=== PATIENT | female | born 1965 | race Caucasian/White ===

== ENCOUNTER 2021-01-18 23:15 | Inpatient (IN) | payer MEDICARE, OTHER ==
[~2021-01-18] VITALS: Ht 165.1 cm; Wt 133.9 kg
[2021-01-19] MEDS ORDERED: METHYL SALICYLATE/MENTHOL TOPICAL OINTMENT 57GM TUBE. TP PRN (01:00)
[2021-01-19] MEDS ORDERED: MAG HYDROX/AL HYDROX/SIMETH 30 ML ORAL.SUSP PO PRN (01:00)
[2021-01-19] MEDS ORDERED: MAGNESIUM HYDROXIDE 2,400 MG/30 ML ORAL.SUSP. PO PRN (01:00)
[2021-01-19 01:37] VITALS: BP 108/65
[2021-01-19] MEDS ORDERED: TORS20TA2 PO (02:05)
[2021-01-19] MEDS ORDERED: LISI2.5T PO (02:05)
[2021-01-19] MEDS ORDERED: POTA10TA PO (02:05)
[2021-01-19] MEDS ORDERED: CLON0.5T4 PO (02:05)
[2021-01-19] MEDS ORDERED: ATOR40TA59 PO (02:05)
[2021-01-19] MEDS ORDERED: GLIP5TAB10 PO (02:05)
[2021-01-19] MEDS ORDERED: RIVA3CAP15 PO (02:05)
[2021-01-19] MEDS ORDERED: DIGO125T17 PO (02:05)
[2021-01-19] MEDS ORDERED: SPIR25TA5 PO (02:05)
[2021-01-19] MEDS ORDERED: MINE15DR2 OU (02:05)
[2021-01-19] MEDS ORDERED: ZUBSOLV PO (02:05)
[2021-01-19] MEDS ORDERED: MELO15TA23 PO (02:05)
[2021-01-19] MEDS ORDERED: DULO60CA6 PO (02:05)
[2021-01-19] MEDS ORDERED: NITR0.4T22 SL (02:05)
[2021-01-19] MEDS ORDERED: IPRA3AMP29 NEB (02:05)
[2021-01-19] MEDS ORDERED: CARI350T14 PO (02:05)
[2021-01-19] MEDS ORDERED: AMIO200T6 PO ×2 (02:05)
[2021-01-19] MEDS ORDERED: OMEP20CA16 PO (02:05)
[2021-01-19] MEDS ORDERED: METO50TA4 PO (02:05)
[2021-01-19] MEDS ORDERED: DAPA10TA PO (02:05)
[2021-01-19] MEDS ORDERED: APIX5TAB3 PO (02:05)
[2021-01-19] MEDS ORDERED: TAMS0.4C97 PO (02:05)
[2021-01-19] MEDS ORDERED: IPRA4AER INH (02:05)
[2021-01-19] MEDS ORDERED: BUDE10.2 IH (02:05)
[2021-01-19] MEDS ORDERED: AMIT100T PO (02:05)
[2021-01-19] MEDS ORDERED: ASPI-889 PO (02:05)
[2021-01-19] MEDS ORDERED: NITROGLYCERIN SUBLINGUAL 0.4 MG BOTTLE OF 25. SL PRN (04:15)
[2021-01-19] MEDS ORDERED: clonazePAM 0.5 MG TABLET PO PRN (04:15)
[2021-01-19] MEDS ORDERED: ALBUTEROL SULFATE 2.5 MG/3 ML NEBU. NEB PRN (04:45)
--- NOTE | 2021-01-19 05:09 | NUR ---
Admission Note with Justification for Admission to [facility] Patient admitted to [facility] for protective oversight for emergency stabilization of acute psychiatric crisis. Pt admitted from: Hospital Inpatient Mode of arrival: EMS Accompanied By: EMS Precipitating behaviors that initiated intake and admission: Patient made SI statements prior to admit stating that she would drown herself. Description of failure of out patient attempts at stabilization in previous setting list behavior and medication trials: Multiple medication changes while inpatient. Behaviors and assessment findings upon admission: the patient has been calm and compliant since arrival. The patient has extensive bruising on forearms. The patient was alert to name, date and location. The patient was pleasant and appropriate during interactions with this nurse. Lungs clear, heart regular. The patient states that she has not had a BM for at least a week. Bowels were audible but hypoactive during auscultation. The patient reports no pain in her abdomen. 1+edema bilateral lower extremities noted. The patient is currently sleeping in her room. Plan: Admit for protective oversight for adjustment and stabilization of medications, behaviors and mood. Intense treatment regimen including groups, medication adjustments, therapy, consistent regimen for ADL's, self care, and sleep hygiene. Daily monitoring by Inpatient staff, Psychiatry, and Medical Physician.
[2021-01-19] MEDS ORDERED: ANTI-COAG MONITOR BY PHARMACY. MC PRN (05:15)
--- NOTE | 2021-01-19 05:23 | EKG ---
[address] [address] Test Date: 2021-01-19 Test Time: 05:11:03 Pat Name: ALFRED MEZA Department: Room: [address] [place] [address] Gender: F [employer]: : 1965 Requested By: STEVIE ETIENNE Order Number: [id number] Reading MD: Measurements Intervals Thayer Rate: 71 P: -72 VA: 218 QRS: 28 QRSD: 196 T: 62 QT: 454 QTc: 499 Interpretive Statements SUPRAVENTRICULAR RHYTHM NON SPECIFIC INTRAVENTRICULAR BLOCK ABNORMAL ECG RI6.01 No previous ECG available for comparison
[2021-01-19] MEDS ORDERED: POLYVINYL ALCOHOL 1.4% OPHTH SOLUTION 15ML BOTTLE. OU PRN (05:30)
[2021-01-19 06:05] VITALS: BP 90/43
[2021-01-19 06:42] LABS: BASO # 0.1 x10^3/uL (0.0-0.2); BASO % 1 % (0-3); EOS # 0.3 x10^3/uL (0.0-0.7); EOS % 4 % (0-3); HEMATOCRIT 29.9 % (36.0-47.0); HEMOGLOBIN 9.4 g/dL (12.0-15.5); LYMPH # 2.1 x10^3/uL (1.0-4.8); LYMPH % 23 % (24-48); MEAN CORPUSCULAR HEMOGLOBIN 27 pg (25-35); MEAN CORPUSCULAR HGB CONC 31 g/dL (31-37); MEAN CORPUSCULAR VOLUME 86 fL (79-100); MONO # 0.6 x10^3/uL (0.0-1.1); MONO % 7 % (0-9); NEUT # 5.9 x10^3uL (1.8-7.7); NEUT % 66 % (31-73); PLATELET COUNT 273 x10^3/uL (140-400); RED BLOOD COUNT 3.45 x10^6/uL (3.50-5.40); RED CELL DISTRIBUTION WIDTH 19.9 % (11.5-14.5)
[2021-01-19 06:54] LABS: ALBUMIN 2.3 g/dL (3.4-5.0); ALBUMIN/GLOBULIN RATIO 0.5 (1.0-1.7); CALCIUM 8.7 mg/dL (8.5-10.1); CREATININE 1.4 mg/dL (0.6-1.0); GFR 38.8; MAGNESIUM 1.6 mg/dL (1.8-2.4); POTASSIUM 4.4 mmol/L (3.5-5.1); TOTAL BILIRUBIN 0.4 mg/dL (0.2-1.0); TOTAL PROTEIN 6.8 g/dL (6.4-8.2)
[2021-01-19] MEDS ORDERED: ALBUTEROL SULFATE 8GM INHALER. INH PRN (07:30)
[2021-01-19 07:44] LABS: BILIRUBIN,URINE NEG (NEG); CLARITY,URINE CLEAR; COLOR,URINE YELLOW; GLUCOSE,URINE NEG (NEG); UROBILINOGEN,URINE 0.2 mg/dL (0.2 mg/dL)
[2021-01-19 07:45] LABS: BACTERIA,URINE FEW /HPF (0-FEW); NITRITE,URINE NEG (NEG); RBC,URINE OCC /HPF (0-2); SQUAMOUS EPITHELIAL CELL,UR MOD /LPF; WBC,URINE 20-40 /HPF (0-4)
[2021-01-19] MEDS ORDERED: IPRATRPIUM/ALBUTEROL 0.5/2.5MG 3 ML NEBU. NEB SCH (08:00)
[2021-01-19] MEDS ORDERED: BUDESONIDE 0.5 MG/2 ML NEBU NEB SCH (08:00)
[2021-01-19] MEDS: NON FORMULARY ITEM (Dapagliflozin Propanediol (Farxiga) 10 MG) PO SCH (09:00)
[2021-01-19 10:29] VITALS: BP 120/70
[2021-01-19] MEDS: DIGOXIN 125 MCG TABLET PO SCH (10:30)
[2021-01-19] MEDS: AMITRIPTYLINE HCL 50 MG TABLET PO SCH ×2 (10:31→20:34)
[2021-01-19] MEDS: LISINOPRIL 2.5 MG TABLET PO SCH (10:31)
[2021-01-19] MEDS: TORSEMIDE 20 MG TABLET. PO SCH ×2 (10:31→14:04)
[2021-01-19] MEDS: DULoxetine HCL 60 MG CAPSULE.DR PO SCH (10:31)
[2021-01-19] MEDS: glipiZIDE 5 MG TABLET PO SCH ×2 (10:31→17:43)
[2021-01-19] MEDS: METOPROLOL SUCC 24HR ER 50 MG TAB.ER.24H. PO SCH (10:32)
[2021-01-19] MEDS: PANTOPRAZOLE 40 MG TABLET. PO SCH (10:32)
[2021-01-19] MEDS: TAMSULOSIN 0.4 MG CAP.ER.24H. PO SCH (10:32)
[2021-01-19] MEDS: SPIRONOLACTONE 25 MG TABLET PO SCH (10:32)
[2021-01-19] MEDS: MELOXICAM 15 MG TABLET. PO SCH (10:32)
[2021-01-19] MEDS: APIXABAN 5 MG TABLET. PO SCH ×2 (10:33→20:33)
[2021-01-19] MEDS: RIVASTIGMINE 3 MG CAPSULE. PO SCH (10:33)
[2021-01-19] MEDS: IPRATROPIUM/ALBUTEROL 20/100mcg/INH INHALER. INH SCH ×4 (10:33→20:32)
[2021-01-19] MEDS: ASPIRIN ENTERIC COATED 81 MG TABLET.DR. PO SCH (10:33)
[2021-01-19] MEDS: POTASSIUM CHLORIDE 20 MEQ TABLET.ER. PO SCH (10:33)
--- NOTE | 2021-01-19 12:10 | NUR ---
ACTIVITY THERAPY ASSESSMENT completed based on notes, observation and interview.Pt was sitting in her wheelchair eating lunch in the dining room. AT explained groups that are offered on [facility] and then asked pt what she likes to do.Pt said "lots of things" and then said "reading and puzzles". Pt is aware and oriented to assessment questions. Pt said that she has good contact with her daughter who is a psychiatric nurse and pt stated "I think that is kind of funny."AT then asked pt if she reports any stress at this time and pt said "we're having a hard within my home and family." Pt discussed that she needed to find a night time sitter. Pt was pleasant and calm during assessment and thanked AT at the end. Pt was provided with reading materials and a few crosswords. Initial goal aimed to support socialization and engagement. Pt will participate in at least three individual or group Activity Therapy sessions per week.
[2021-01-19] MEDS: ACETAMINOPHEN 325 MG TABLET PO PRN (14:07)
[2021-01-19 15:59] VITALS: BP 102/62
--- NOTE | 2021-01-19 18:25 | NUR ---
Patient has been disorganized, attention seeking, somatic and helpless throughout this shift. Patient walked with therapy this morning and she stated to therapy that a night staff member triggered her PTSD. After lunch, patient was found on the floor in her bathroom after being assisted to her room, her dress and socks were wet at that time. Patient had pressed the call button and states that she could not walk back from her toilet to her chair which was in her bathroom at the time and that this proves she cannot walk by herself and needs someone to push her wheelchair everywhere she goes. When encouraged by an aide to help with getting her changed, patient threatened to punch the aide in her stomach. Patient was lifted off the floor with a Carina into her chair, then stood up unassisted so that staff could remove the Carina sling from her wheelchair. Patient continued to have attention seeking and manipulative behaviors. Will continue to monitor and report to MD during rounds.
[2021-01-19 19:58] LABS: THYROID STIM HORMONE (TSH) 5.353 uIU/mL (0.358-3.740)
[2021-01-19 20:08] LABS: THYROXINE 11.7 ug/dL (4.5-12.0)
[2021-01-19] MEDS: AMIODARONE HCL 200 MG TABLET. PO SCH (20:33)
[2021-01-19] MEDS: ATORVASTATIN CALCIUM 20 MG TABLET PO SCH (20:33)
--- NOTE | 2021-01-19 21:57 | PDOC ---
Exam Note: Pieter Note: Please also refer to the separate dictated note~for this date of service dictated separately.~Patient seen individually. Discussed the patient with Nursing staff reviewed the chart.~Reviewed interim history and current functioning. Reviewed vital signs,~Labs/ Radiology~and current medications noted below. Continue current treatment with the changes noted in the dictated addendum note Assessment: Vital Signs/I&O: Vital Signs Date Time Temp Pulse Resp B/P (MAP) Pulse Ox O2 Delivery O2 Flow Rate FiO2 01/19/21 20:33 54 102/62 01/19/21 15:59 97.1 20 94 01/19/21 01:37 91.0 Labs: Laboratory Tests Test 01/19/21 05:30 01/19/21 06:25 Urine Collection Type Unknown Urine Color Yellow Urine Clarity Clear Urine pH 5.5 Urine Specific [place] <=1.005 Urine Protein Neg (NEG-TRACE) Urine Glucose (UA) Neg mg/dL (NEG) Urine Ketones (Stick) Neg mg/dL (NEG) Urine Blood Trace (NEG) Urine Nitrite Neg (NEG) Urine Bilirubin Neg (NEG) Urine Urobilinogen Dipstick 0.2 mg/dL (0.2 mg/dL) Urine Leukocyte Esterase Mod (NEG) Urine RBC Occ /HPF (0-2) Urine WBC 20-40 /HPF (0-4) Urine Squamous Epithelial Cells Mod /LPF Urine Transitional Epithelial Cells Occ /LPF Urine Bacteria Few /HPF (0-FEW) White Blood Count 9.0 x10^3/uL (4.0-11.0) Red Blood Count 3.45 x10^6/uL (3.50-5.40) L Hemoglobin 9.4 g/dL (12.0-15.5) L Hematocrit 29.9 % (36.0-47.0) L Mean Corpuscular Volume 86 fL (79-100) Mean Corpuscular Hemoglobin 27 pg (25-35) Mean Corpuscular Hemoglobin Concent 31 g/dL (31-37) Red Cell Distribution Width 19.9 % (11.5-14.5) H Platelet Count 273 x10^3/uL (140-400) Neutrophils (%) (Auto) 66 % (31-73) Lymphocytes (%) (Auto) 23 % (24-48) L Monocytes (%) (Auto) 7 % (0-9) Eosinophils (%) (Auto) 4 % (0-3) H Basophils (%) (Auto) 1 % (0-3) Neutrophils # (Auto) 5.9 x10^3uL (1.8-7.7) Lymphocytes # (Auto) 2.1 x10^3/uL (1.0-4.8) Monocytes # (Auto) 0.6 x10^3/uL (0.0-1.1) Eosinophils # (Auto) 0.3 x10^3/uL (0.0-0.7) Basophils # (Auto) 0.1 x10^3/uL (0.0-0.2) D-Dimer (Florencia) 0.56 mg/L (0.00-0.50) H Sodium Level 135 mmol/L (136-145) L Potassium Level 4.4 mmol/L (3.5-5.1) Chloride Level 98 mmol/L (98-107) Carbon Dioxide Level 30 mmol/L (21-32) Anion Gap 7 (6-14) Blood Urea Nitrogen 23 mg/dL (7-20) H Creatinine 1.4 mg/dL (0.6-1.0) H Estimated GFR (Cockcroft-Gault) 38.8 BUN/Creatinine Ratio 16 (6-20) Glucose Level 193 mg/dL (70-99) H Calcium Level 8.7 mg/dL (8.5-10.1) Magnesium Level 1.6 mg/dL (1.8-2.4) L Iron Level 47 ug/dL (50-170) L Total Iron Binding Capacity 336 ug/dL (250-450) Iron Saturation 14 % (15-34) L Total Bilirubin 0.4 mg/dL (0.2-1.0) Aspartate Amino Transferase (AST) 18 U/L (15-37) Alanine Aminotransferase (ALT) 32 U/L (14-59) Alkaline Phosphatase 130 U/L (46-116) H Total Protein 6.8 g/dL (6.4-8.2) Albumin 2.3 g/dL (3.4-5.0) L Albumin/Globulin Ratio 0.5 (1.0-1.7) L Triglycerides Level 188 mg/dL (0-150) H Cholesterol Level 68 mg/dL (0-200) LDL Cholesterol, Calculated 6 mg/dL (0-100) VLDL Cholesterol, Calculated 37 mg/dL (0-40) Non-HDL Cholesterol Calculated 43 mg/dL (0-129) HDL Cholesterol 25 mg/dL (40-60) L Cholesterol/HDL Ratio 2.0 Vitamin B12 Level 360 pg/mL (247-911) 25-Hydroxy Vitamin D Total 9.7 ng/mL (30-100) L Thyroid Stimulating Hormone (TSH) 5.353 uIU/mL (0.358-3.740) Thyroxine (T4) 11.7 ug/dL (4.5-12.0) Total Triiodothyronine (TT3) 180 ng/dL (71-180) Treponema pallidum Antibody Nonreactive (Nonreactive) Current Medications: Meds: Current Medications Medications (Trade) Dose Ordered Sig/Maria C Route PRN Reason Start Time Stop Time Status Last Admin Dose Admin Acetaminophen (Tylenol) 650 mg PRN Q6HRS PRN PO MILD PAIN / TEMP > 100.3'F 01/19/21 01:00 01/19/21 14:07 Duloxetine HCl (Cymbalta) 60 mg DAILY PO 01/19/21 09:00 01/19/21 10:31 Rivastigmine Tartrate (Exelon) 3 mg DAILY PO 01/19/21 09:00 01/19/21 10:33 Amitriptyline HCl (Elavil) 100 mg BID PO 01/19/21 09:00 01/19/21 20:34 Apixaban (Eliquis) 5 mg BID PO 01/19/21 09:00 01/19/21 20:33 Aspirin (Aspirin Enteric Coated) 81 mg DAILY PO 01/19/21 09:00 01/19/21 10:33 Digoxin (Lanoxin) 125 mcg DAILY PO 01/19/21 09:00 01/19/21 10:30 Glipizide (Glucotrol) 2.5 mg BIDWMEALS PO 01/19/21 08:00 01/19/21 17:43 Lisinopril (Prinivil) 2.5 mg DAILY PO 01/19/21 09:00 01/19/21 10:31 Meloxicam (Mobic) 15 mg DAILY PO 01/19/21 09:00 01/19/21 10:32 Metoprolol Succinate (Toprol Xl) 50 mg DAILY PO 01/19/21 09:00 01/19/21 10:32 Spironolactone (Aldactone) 25 mg DAILY PO 01/19/21 09:00 01/19/21 10:32 Tamsulosin HCl (Flomax) 0.4 mg DAILY PO 01/19/21 09:00 01/19/21 10:32 Torsemide (Demadex) 80 mg BID92 PO 01/19/21 09:00 01/19/21 14:04 Atorvastatin Calcium (Lipitor) 40 mg QHS PO 01/19/21 21:00 01/19/21 20:33 Pantoprazole Sodium (Protonix) 40 mg DAILYAC PO 01/19/21 07:30 01/19/21 10:32 Potassium Chloride (Klor-Con) 20 meq DAILYWBKFT PO 01/19/21 08:00 01/19/21 10:33 Albuterol/ Ipratropium (Combivent Respimat 20-100 Mcg) 1 puff RTQID INH 01/19/21 08:00 01/19/21 20:32 Amiodarone HCl (Cordarone) 200 mg BID PO 01/19/21 21:00 01/29/21 00:00 01/19/21 20:33 I have reviewed the current psychotropics carefully including drug interactions. Risk benefit ratio favors no change other than as noted in my dictated progress note. Diagnosis: Problems: (1) Major depressive disorder STEVIE ETIENNE MD January 19, 2021 21:57
[2021-01-20 01:09] LABS: HEMOGLOBIN A1C 7.3 % (4.8-5.6)
--- NOTE | 2021-01-20 03:16 | CONS ---
DATE OF CONSULTATION: 01/18/2021 HISTORY OF PRESENT ILLNESS: This is a consult for medical management of the patient. The patient is a 55-year-old female patient residing at an Independent Living Facility and who was admitted to [facility] on 01/09/2021 for encephalopathy. She apparently was found on the floor having profuse diarrhea for 2 days. In the emergency room, she was found to be in AFib with RVR in the setting of known heart failure with an ejection fraction of 10-15%. She was extensively investigated for her encephalopathy including lumbar puncture, MRI of the brain and EEG and trial of antibiotics and liver tests have been unremarkable so far, and has been off of antibiotics for a few days per infectious disease recommendation. Apparently, the patient has been reportedly having suicidal ideation with a plan of drowning herself. She also had acute psychosis with hallucination. She apparently has had Parkinson disease and her Sinemet was held and because of these ideation the patient was transferred to [facility] for inpatient psychiatric stabilization. PAST MEDICAL HISTORY: Significant for coronary artery disease, type 2 diabetes mellitus, diabetic polyneuropathy, reflex sympathetic dystrophy, obstructive sleep apnea, chronic obstructive pulmonary disease. She has Parkinson's disease, chronic combined systolic and diastolic congestive heart failure, paroxysmal atrial fibrillation, cardiomyopathy, atrial fibrillation with rapid ventricular response. PAST SURGICAL HISTORY: Significant for bilateral carpal tunnel, cholecystectomy and total abdominal hysterectomy with bilateral salpingo-oophorectomy. She also has cardiac catheterization and cervical corpectomy at C6. ALLERGIES: SHE IS ALLERGIC TO PENICILLIN, SULFA DRUGS, ADHESIVE TAPE, GABAPENTIN, PHENYTOIN AND PREGABALIN. MEDICATIONS: She is currently on the following medication - she is on rivastigmine tartrate 10 mg daily, DuoNeb, 0.5/2.5 in 3 mL by nebulizer q.4h., tamsulosin 0.4 mg daily, Soma 350 mg 3 times a day, apixaban 5 mg twice a day, amiodarone 200 mg twice a day. She is on digoxin 125 mcg once a day, atorvastatin calcium 40 mg at bedtime. She is on nitroglycerin 0.4 mg sublingually every 5 minutes x3, metoprolol succinate 50 mg daily and lisinopril 2.5 mg once a day, spironolactone 25 mg daily, aspirin 81 mg once a day, meloxicam 15 mg once a day, clonazepam 0.5 mg twice a day, amitriptyline 100 mg twice a day, duloxetine 60 mg daily. She is on potassium chloride 20 mEq once a day and torsemide 80 mg twice a day, Symbicort 2 puffs twice a day, omeprazole 20 mg twice a day, Farxiga 10 mg daily, glipizide 2.5 mg twice a day, and she is also on Zubsolv 0.71-2.9 mg p.o. b.i.d., which is an opioid. FAMILY HISTORY: Her father at the age of 36 and a brother is still alive. Apparently, her father in a car accident. SOCIAL HISTORY: She is a resident at assisted living facility. She is a former smoker. She used to smoke 2 packs a day, quit smoking in 10/2020. She does not drink alcohol or use any recreational drugs. REVIEW OF SYSTEMS: The patient complained mostly of pain in her upper and lower extremities and she has reflex sympathetic dystrophy and apparently she was on opioids and this were discontinued. PHYSICAL EXAMINATION: GENERAL: When I examined her, she was sitting comfortably in her wheelchair, somewhat pale, but no jaundice, cyanosis, no lymphadenopathy, no thyromegaly, no jugular venous distention, but mild bilateral lower limb edema. VITAL SIGNS: Her heart rate was 66, blood pressure is 120/70, temperature 98, respiratory rate 20, and oxygen saturation was 91% on room air. HEENT: Examination of the head, eyes, nose and throat: Normocephalic, atraumatic. NECK: Supple. HEART: Normal first and second heart sounds, no gallop, murmur. CHEST: Clear to auscultation. No crepitation or rhonchi. ABDOMEN: Markedly distended, soft, nontender. NEUROLOGIC: She is awake, alert, but she seems to drift into sleep. She is easily arousable. All her cranial nerves are intact. She moves extremities without difficulty. She stated that she ambulates with a walker. LABORATORY DATA: Showed a white cell count 9000, hemoglobin 9, hematocrit 29, MCV 86 and platelet count 273,000. Her serum sodium was 135, potassium 4.4, chloride 98, bicarbonate 30, anion gap of 7, BUN 23, creatinine 1.4. Estimated GFR was 39 mL per minute. Her glucose 193, calcium was 8.7, magnesium was 1.6. Total bilirubin, AST, ALT, alkaline phosphatase were normal. Total protein was 6.8, albumin was 2.3. Her D-dimer was slightly elevated at 0.56 and urinalysis showed the urine was yellow, clear with a pH of 5.5, specific gravity 1.005. The urine was negative for protein, glucose, ketones. There was trace of blood, negative for nitrite; however, there was moderate amount of leukocyte esterase, occasional RBC'S, 20-40 WBCs and few bacteria. ASSESSMENT AND PLAN: In summary, this is a 55-year-old female patient who was seen initially at [facility] for what seemed to be encephalopathy. It was extensively investigated and all the tests were negative including EEG, lumbar puncture, MRI and a trial of antibiotic. She apparently has been having suicidal ideation with a plan of drowning herself. She has also periods of confusion and visual hallucination and therefore, the patient was [facility] for inpatient psychiatric stabilization. She has a multitude of medical problems including chronic systolic congestive heart failure with an ejection fraction of only 15%, coronary artery disease, paroxysmal atrial fibrillation, Parkinson's disease, chronic obstructive pulmonary disease, obstructive sleep apnea, type 2 diabetes, hypertension. She is a former smoker. She also has reflex sympathetic dystrophy, severe. She has some cognitive impairment, hypokalemia, hypomagnesemia and hypocalcemia, all in all, the patient seems to be medically stable. I will continue on her current medication and follow her lab work that is still pending at the time of this dictation. She does not seem clinically to be in heart failure and she is on meloxicam, which sometimes can cause fluid retention and if necessary, this can be discontinued. I do not see any anti-parkinsonian medication as Sinemet can cause actually visual hallucinations. SANDHYA DR: Marques TID: [id number]
--- NOTE | 2021-01-20 03:32 | NUR ---
Nursing Note The patient was located in her room for the majority of the shift. The patient was irritable with staff during cares. The patient is uncooperative with self cares and refuses to propel herself in her wheel chair or transfer to and from wheel chair. The patient was compliant with medications and took them whole. The patient has several self inflicted wounds located on her forearms r/t scratching self. Photos taken and placed in photo book.
[2021-01-20 06:09] VITALS: BP 110/71
[2021-01-20] MEDS: NON FORMULARY ITEM (Dapagliflozin Propanediol (Farxiga) 10 MG) PO SCH (08:00)
[2021-01-20] MEDS: PANTOPRAZOLE 40 MG TABLET. PO SCH (08:59)
[2021-01-20] MEDS: TORSEMIDE 20 MG TABLET. PO SCH ×2 (08:59→12:20)
[2021-01-20] MEDS: glipiZIDE 5 MG TABLET PO SCH ×2 (08:59→17:37)
[2021-01-20] MEDS: AMITRIPTYLINE HCL 50 MG TABLET PO SCH ×2 (08:59→20:34)
[2021-01-20] MEDS: DIGOXIN 125 MCG TABLET PO SCH (09:00)
[2021-01-20] MEDS: DULoxetine HCL 60 MG CAPSULE.DR PO SCH (09:00)
[2021-01-20] MEDS: SPIRONOLACTONE 25 MG TABLET PO SCH (09:00)
[2021-01-20] MEDS: AMIODARONE HCL 200 MG TABLET. PO SCH ×2 (09:00→20:34)
[2021-01-20] MEDS: ASPIRIN ENTERIC COATED 81 MG TABLET.DR. PO SCH (09:00)
[2021-01-20] MEDS: POTASSIUM CHLORIDE 20 MEQ TABLET.ER. PO SCH (09:00)
[2021-01-20] MEDS: LISINOPRIL 2.5 MG TABLET PO SCH (09:01)
[2021-01-20] MEDS: MELOXICAM 15 MG TABLET. PO SCH (09:01)
[2021-01-20] MEDS: APIXABAN 5 MG TABLET. PO SCH ×2 (09:01→20:34)
[2021-01-20] MEDS: METOPROLOL SUCC 24HR ER 50 MG TAB.ER.24H. PO SCH (09:01)
[2021-01-20] MEDS: RIVASTIGMINE 3 MG CAPSULE. PO SCH (09:01)
[2021-01-20] MEDS: TAMSULOSIN 0.4 MG CAP.ER.24H. PO SCH (09:01)
[2021-01-20] MEDS: IPRATROPIUM/ALBUTEROL 20/100mcg/INH INHALER. INH SCH ×4 (09:02→20:34)
[2021-01-20] MEDS: FLUTICASONE FUROATE 100mcg/INH ELLIPTA INHALER. INH SCH (09:02)
--- NOTE | 2021-01-20 11:12 | NUR ---
Patient is calm and cooperative in her room. Patient needs much encouragement to use her walker and walk the unit. Patient was unwilling to head to breakfast but will be encouraged to head to lunch
[2021-01-20 16:09] VITALS: BP 98/63
--- NOTE | 2021-01-20 18:00 | NUR ---
Patient walked from [facility] to her room without alerting staff. While patient was walking in her room with the use of her walker she fell over to her left side. patient states she felt dizzy and weak. Patient family called and a voicemail was left. Dr. Lund notified of fall no new orders at this time. patient denies hip pain or hitting her head. Staff will continue to monitor.
[2021-01-20] MEDS: ATORVASTATIN CALCIUM 20 MG TABLET PO SCH (20:34)
--- NOTE | 2021-01-20 23:30 | NUR ---
Pt located in her room this evening. Pt helpless and attention seeking. Denies SI. Compliant with whole medications. Pt intermittently yelling out from bed.
--- NOTE | 2021-01-21 00:37 | PN ---
DATE: 01/20/2021 SUBJECTIVE: The patient was seen today, met with the staff, chart reviewed and also covering for Dr. Freeman. The patient has been sleeping during the daytime, complains of having difficulty breathing at times. Apparently, she has sleep apnea, was using CPAP machine at home. The patient admits to being unsteady on her feet. She is a fall risk. OBSERVATION: VITAL SIGNS: Temperature 97.2, blood pressure 110/71, pulse 72, respirations 16, O2 sat 94%. GENERAL: Slept about 4 hours last night. CURRENT MEDICATIONS: Include Cymbalta 60 mg daily, Exelon 3 mg daily, amitriptyline 100 mg twice a day. The patient denies of having any side effects to medications. LABORATORY DATA: The patient's lab reviewed. ASSESSMENT: Major depressive disorder, moderate to severe, without psychotic symptoms. PLAN: Continue with the current treatment plan. Length of stay 7 to [address]: Charlie TID: [id number] [facility]
[2021-01-21 06:19] VITALS: BP 94/58
[2021-01-21] MEDS: NON FORMULARY ITEM (Dapagliflozin Propanediol (Farxiga) 10 MG) PO SCH (07:24)
[2021-01-21] MEDS: ASPIRIN ENTERIC COATED 81 MG TABLET.DR. PO SCH (08:26)
[2021-01-21] MEDS: SPIRONOLACTONE 25 MG TABLET PO SCH (08:27)
[2021-01-21] MEDS: glipiZIDE 5 MG TABLET PO SCH ×2 (08:27→17:19)
[2021-01-21] MEDS: DULoxetine HCL 60 MG CAPSULE.DR PO SCH (08:27)
[2021-01-21] MEDS: AMIODARONE HCL 200 MG TABLET. PO SCH ×2 (08:27→20:49)
[2021-01-21] MEDS: TAMSULOSIN 0.4 MG CAP.ER.24H. PO SCH (08:28)
[2021-01-21] MEDS: PANTOPRAZOLE 40 MG TABLET. PO SCH (08:28)
[2021-01-21] MEDS: AMITRIPTYLINE HCL 50 MG TABLET PO SCH ×2 (08:28→20:49)
[2021-01-21] MEDS: RIVASTIGMINE 3 MG CAPSULE. PO SCH (08:28)
[2021-01-21] MEDS: LISINOPRIL 2.5 MG TABLET PO SCH (08:28)
[2021-01-21] MEDS: POTASSIUM CHLORIDE 20 MEQ TABLET.ER. PO SCH (08:29)
[2021-01-21] MEDS: TORSEMIDE 20 MG TABLET. PO SCH ×2 (08:29→12:13)
[2021-01-21] MEDS: METOPROLOL SUCC 24HR ER 50 MG TAB.ER.24H. PO SCH (08:29)
[2021-01-21] MEDS: IPRATROPIUM/ALBUTEROL 20/100mcg/INH INHALER. INH SCH ×4 (08:30→20:49)
[2021-01-21] MEDS: APIXABAN 5 MG TABLET. PO SCH ×2 (08:30→20:49)
[2021-01-21] MEDS: FLUTICASONE FUROATE 100mcg/INH ELLIPTA INHALER. INH SCH (08:30)
[2021-01-21] MEDS: MELOXICAM 15 MG TABLET. PO SCH (08:30)
[2021-01-21] MEDS: DIGOXIN 125 MCG TABLET PO SCH (08:30)
[2021-01-21 08:31] LABS: BILIRUBIN,URINE NEG (NEG); CLARITY,URINE HAZY; COLOR,URINE YELLOW; GLUCOSE,URINE NEG (NEG)
[2021-01-21 08:32] LABS: NITRITE,URINE NEG (NEG); UROBILINOGEN,URINE 0.2 mg/dL (0.2 mg/dL)
[2021-01-21 08:35] LABS: RBC,URINE 0 /HPF (0-2)
[2021-01-21 08:36] LABS: BACTERIA,URINE FEW /HPF (0-FEW)
--- NOTE | 2021-01-21 10:10 | NUR ---
Patient is irritable and expresses frustration with her care today. patient states that she is unhappy with staff encouraging her to walk when possible and she feels that nobody understands her conditions. Patient educated that staff has her best interest in mind and will do their best to accommodate her needs. Patient given time to vent to nurse and to speak with family. Family updated on patients behaviors and staff capabilities.
[2021-01-21 16:19] VITALS: BP 103/63
[2021-01-21] MEDS: ATORVASTATIN CALCIUM 20 MG TABLET PO SCH (20:49)
[2021-01-21] MEDS: CYCLOBENZAPRINE 10 MG TABLET. PO PRN (20:51)
[2021-01-21] MEDS: ACETAMINOPHEN 325 MG TABLET PO PRN (21:59)
--- NOTE | 2021-01-21 22:46 | NUR ---
Pt located in her room this evening reading and completing word searches. Compliant with whole medications. Complains of arm/ leg pain. PRN Flexeril administered with HS medications. Pt irritable and upset with staff, stating that nobody listens to her and understands her situation.
--- NOTE | 2021-01-22 02:58 | PN ---
DATE: 01/21/2021 SUBJECTIVE: The patient was seen today, met with the staff. Chart reviewed and also covering for Dr. Freeman . Staff reports the patient is attention seeking, manipulative behaviors, constantly being helpless. Patient also has multiple physical complaints. She is also having problems with sleep apnea, admits to having problems with breathing at times. PHYSICAL EXAMINATION: VITAL SIGNS: Temperature 96.8, blood pressure 94/58, pulse 134, respirations 16, O2 sat 90%. Slept about 5 hour last night. GENERAL: The patient's appetite is fair. CURRENT MEDICATIONS: Cymbalta 60 mg daily, Exelon 3 mg daily, amitriptyline 100 mg twice a day. She denies of any side effects to medications. LABORATORY DATA: The patient's lab reviewed. ASSESSMENT: Major depressive disorder, moderate to severe, without psychotic symptoms. PLAN: To continue with the current treatment plan. Length of stay 7 to 10 days. AB/TAMERA/CHETAN DR: Charlie TID: [id number] [facility]TDD
[2021-01-22 06:37] VITALS: BP_SYST 122; BP_DIAS 72; BP_DIAS 74
[2021-01-22] MEDS: glipiZIDE 5 MG TABLET PO SCH ×2 (08:34→17:36)
[2021-01-22] MEDS: APIXABAN 5 MG TABLET. PO SCH ×2 (08:34→21:41)
[2021-01-22] MEDS: SPIRONOLACTONE 25 MG TABLET PO SCH (08:34)
[2021-01-22] MEDS: METOPROLOL SUCC 24HR ER 50 MG TAB.ER.24H. PO SCH (08:35)
[2021-01-22] MEDS: MELOXICAM 15 MG TABLET. PO SCH (08:36)
[2021-01-22] MEDS: POTASSIUM CHLORIDE 20 MEQ TABLET.ER. PO SCH (08:36)
[2021-01-22] MEDS: TAMSULOSIN 0.4 MG CAP.ER.24H. PO SCH (08:36)
[2021-01-22] MEDS: PANTOPRAZOLE 40 MG TABLET. PO SCH (08:37)
[2021-01-22] MEDS: DIGOXIN 125 MCG TABLET PO SCH (08:37)
[2021-01-22] MEDS: LISINOPRIL 2.5 MG TABLET PO SCH (08:37)
[2021-01-22] MEDS: DULoxetine HCL 60 MG CAPSULE.DR PO SCH (08:38)
[2021-01-22] MEDS: AMITRIPTYLINE HCL 50 MG TABLET PO SCH ×2 (08:38→21:42)
[2021-01-22] MEDS: IPRATROPIUM/ALBUTEROL 20/100mcg/INH INHALER. INH SCH ×4 (08:38→21:42)
[2021-01-22] MEDS: RIVASTIGMINE 3 MG CAPSULE. PO SCH (08:38)
[2021-01-22] MEDS: AMIODARONE HCL 200 MG TABLET. PO SCH ×2 (08:38→21:41)
[2021-01-22] MEDS: TORSEMIDE 20 MG TABLET. PO SCH ×2 (08:38→13:01)
[2021-01-22] MEDS: FLUTICASONE FUROATE 100mcg/INH ELLIPTA INHALER. INH SCH (08:38)
[2021-01-22] MEDS: NON FORMULARY ITEM (Dapagliflozin Propanediol (Farxiga) 10 MG) PO SCH (08:39)
[2021-01-22] MEDS: ASPIRIN ENTERIC COATED 81 MG TABLET.DR. PO SCH (08:39)
[2021-01-22] MEDS: ACETAMINOPHEN 325 MG TABLET PO PRN (08:49)
--- NOTE | 2021-01-22 10:08 | NUR ---
LUIS MANUEL returned call to pt dtr/DPOA, Shae, to schedule a visit for Friday at 0900. LUIS MANUEL informed Shae that she can have 2 people at the visit (>17 in age) and that visits were only 30 minutes. LUIS MANUEL recommended her leaving her purse in the car, but was not required. LUIS MANUEL also recommended she be here at least 10 prior to go through the check in process and avoid being late for her visit at 0900.
--- NOTE | 2021-01-22 15:08 | NUR ---
SW contacted pt dtr, Shae, to inform her that pt is on the floor and giving staff a hard time about getting up. It was noted that pt was seen on the cameras using the chair to get on the floor. Pt is refusing to assist and has been told that staff is not going to lift her 100% up off the floor and she will need to assist in standing. Pt dtr reports that she can be difficult but has no clue why she would even try to put herself on the floor. Initially staff took all phone calls from pt; however, SW did approve for pt dtr to talk to her in hopes to get pt off the floor. Pt dtr called back stating that pt hung up on her. SW and pt dtr agreed that no visit would be needed for tomorrow as pt cannot have behaviors as such and be rewarded. Pt dtr reports that she started out saying "so I hear you're on the floor" pt told her dtr that she fell in which pt dtr said "okay, but now it's time to get up off the floor". In which pt dtr reports getting a dial tone afterwards. SW will plan to talk to pt herself and can update pt dtr afterwards.
--- NOTE | 2021-01-22 15:16 | NUR ---
Nursing note: Pt in dining room at time of AM med pass and assessment. Pt is pleasant, med compliant and cooperative. Pt c/o pain 8/10 in her arms and legs and requested tylenol. PRN given with AM meds, which was effective upon reassessment. Pt later put herself on the floor when walking in the hallway. She is sitting directly in front of a chair and when asked about it, she states "Oh, I just slid out of my chair." Pt is refusing staff assistance to get her up off the floor. She was brought a pillow to place as a cushion under her knees in order to use the chair to assist in standing her up. Pt then began to log roll down the hallway. Staff has attempted to help pt get up off the floor multiple times, but she continues to refuse help. Pt continues to sit quietly on the floor at this time. Will continue to monitor and provide encouragement.
--- NOTE | 2021-01-22 15:37 | NUR ---
LUIS MANUEL met with pt and discussed with her how she made it to the floor. Pt stated that she was walking down the hallway and fell. But no one seems to understand and know her pain. SW questioned pt as it was noted on the cameras that pt used the chair in the hallway and placed herself on the floor. Pt denied and stated "you guys can't prove that happened, you say it but you can't prove it". SW pointed to the camera in the hallway and explained to pt that it was seen by two different staff members and pt stated "that's a shame. I don't think they watched very closely because I fell". SW informed pt that staff would not be physically picking pt up and she would have to help also. Pt reports that she can lift her bottom but that's about it. SW disagreed with pt as she rolled herself down the hallway, has been bending her knees while talking to SW and has been walking to and from the dining room. "you can lift more than your butt to help staff". Pt questioned why they just couldn't use the green thing to help her because that's what was used all weekend. LUIS MANUEL explained with pt that we were not going to use a joan lift every time pt was on the floor. There are people who need the joan for cares and she is more than capable of assisting staff. Pt reports that she doesn't feel like anyone here has read her chart, nor understands everything going on with her. SW assured her that staff is very well aware of her history and knows about her medical diagnosis. In which pt smirked "oh do they? They why am I on the floor and not up in my bed". LUIS MANUEL stated "you're on the floor because you put yourself there and you're not in your bed because you refused every option staff gave you to get up off the floor". Pt smirked and denied staff giving her any options to get off the floor. LUIS MANUEL will work with nursing on a behavioral plan in the event pt ends up on the floor again. It appears that PT has signed off on pt need for therapy. However, if pt is to return home, there are concerns that she is not physically able to care for herself during the times her caregivers are not there. Note: pt receives 55 hours for the week for services; however, she has not had any due to her being difficult when they are there and caregivers are refusing to work with her.
--- NOTE | 2021-01-22 18:00 | NUR ---
Nursing note: Concerns regarding pt fluid restriction addressed with Dr. Lund. New orders received for a 1500mL fluid restriction.
[2021-01-22] MEDS: ATORVASTATIN CALCIUM 20 MG TABLET PO SCH (21:42)
--- NOTE | 2021-01-23 00:09 | PN ---
DATE: 01/22/2021 SUBJECTIVE: The patient was seen today, met with the staff. Chart reviewed and also covering for Dr. Freeman . The patient is still attention seeking, helpless, attentively manipulative at times. The patient also is having problems with her breathing at times. OBSERVATION VITAL SIGNS: Temperature 97.4, blood pressure 122/72, pulse 63, respirations 20, O2 sat 97%. Slept about 5 hour last night. GENERAL: The patient's appetite improved. CURRENT MEDICATIONS: Include Cymbalta 60 mg daily, Exelon 3 mg daily, amitriptyline 100 mg twice a day. The patient denies of any side effects to medications. LABORATORY DATA: The patient's lab reviewed. ASSESSMENT: Major depressive disorder, moderate to severe with psychotic features. PLAN: The patient is currently taking amitriptyline 200 mg in total and because of the risk for overdose and also cardiac toxicity, decided to decrease the Elavil to 50 mg twice a day and eventually discontinue. Length of stay 7 days. GENNA/CHETAN DR: Charlie TID: [id number] MTDD
--- NOTE | 2021-01-23 00:16 | NUR ---
Pt put herself on the floor in the bathroom after she was finished using the toilet. Patient states that she "fell" onto the floor. Day shift nurse told HS nurse that patient has been putting herself on the floor for attention. Nurse assessed patient and no injuries were found. Patient denied pain Nurse then spoke with patient about the danger of putting self on the floor and how when she refuses to assist staff in getting her back into chair she can hurt herself or the staff assisting her. Nurse retrieved Carina and lift sheet to assist the patient up but then MUNICIPAL CLERK staff used gait belt to get patient up and into wheelchair. Patient compliant with medications and was assisted to bed. Patient denies SI and denied that putting herself on the floor was an attempt to hurt herself.
[2021-01-23 06:17] VITALS: BP 99/77
[2021-01-23] MEDS: IPRATROPIUM/ALBUTEROL 20/100mcg/INH INHALER. INH SCH ×4 (08:00→21:03)
[2021-01-23] MEDS: POTASSIUM CHLORIDE 20 MEQ TABLET.ER. PO SCH (08:49)
[2021-01-23] MEDS: PANTOPRAZOLE 40 MG TABLET. PO SCH (08:49)
[2021-01-23] MEDS: glipiZIDE 5 MG TABLET PO SCH ×2 (08:49→17:11)
[2021-01-23] MEDS: TORSEMIDE 20 MG TABLET. PO SCH ×2 (08:50→12:27)
[2021-01-23] MEDS: SPIRONOLACTONE 25 MG TABLET PO SCH (08:50)
[2021-01-23] MEDS: RIVASTIGMINE 3 MG CAPSULE. PO SCH (08:51)
[2021-01-23] MEDS: AMITRIPTYLINE HCL 50 MG TABLET PO SCH ×2 (08:51→21:03)
[2021-01-23] MEDS: AMIODARONE HCL 200 MG TABLET. PO SCH ×2 (08:51→21:10)
[2021-01-23] MEDS: DULoxetine HCL 60 MG CAPSULE.DR PO SCH (08:51)
[2021-01-23] MEDS: APIXABAN 5 MG TABLET. PO SCH ×2 (08:51→21:04)
[2021-01-23] MEDS: MELOXICAM 15 MG TABLET. PO SCH (08:51)
[2021-01-23] MEDS: TAMSULOSIN 0.4 MG CAP.ER.24H. PO SCH (08:51)
[2021-01-23] MEDS: DIGOXIN 125 MCG TABLET PO SCH (08:52)
[2021-01-23] MEDS: ASPIRIN ENTERIC COATED 81 MG TABLET.DR. PO SCH (08:52)
[2021-01-23] MEDS: LISINOPRIL 2.5 MG TABLET PO SCH (08:53)
[2021-01-23] MEDS: METOPROLOL SUCC 24HR ER 50 MG TAB.ER.24H. PO SCH (08:53)
[2021-01-23] MEDS: NON FORMULARY ITEM (Dapagliflozin Propanediol (Farxiga) 10 MG) PO SCH (08:54)
[2021-01-23] MEDS: FLUTICASONE FUROATE 100mcg/INH ELLIPTA INHALER. INH SCH (08:54)
--- NOTE | 2021-01-23 13:32 | NUR ---
Nursing note: Pt in dining room at time of AM med pass and assessment. She is compliant with meds whole and cooperative with assessment. Pt denies pain, hallucinations and SI. Pt is in wheelchair for safety and is able to propel herself around the unit. Pt will occasionally ask staff to push her around the unit, but encouragement is provided and she is able to wheel herself. She is currently in the day room for group. Will continue to monitor.
[2021-01-23] MEDS: ACETAMINOPHEN 325 MG TABLET PO PRN ×2 (18:19→23:45)
[2021-01-23] MEDS: ATORVASTATIN CALCIUM 20 MG TABLET PO SCH (21:04)
[2021-01-23 21:10] VITALS: BP 97/52
--- NOTE | 2021-01-23 22:20 | NUR ---
Held HS amiodarone as patients BP and pulse were low. See documentation
[2021-01-23] MEDS: CYCLOBENZAPRINE 10 MG TABLET. PO PRN (23:45)
--- NOTE | 2021-01-23 23:45 | NUR ---
Patient reports 9/10 pain in right femur and hip. PRN tylenol and Flexoril given for pain. Will continue to monitor.
[2021-01-23] MEDS ORDERED: CYCL-331 PO (23:47)
[2021-01-23] MEDS ORDERED: METH57CR17 TP (23:50)
[2021-01-23] MEDS ORDERED: ACET325T21 PO (23:51)
--- NOTE | 2021-01-23 23:51 | NUR ---
At 2240 PHARMACY TECHNICIAN INSTRUCTOR was rounding heard pressure alarm sounding and observed patient sitting on the toilet. When PHARMACY TECHNICIAN INSTRUCTOR came back to check on patient she was observed to stand up independently and start to walk out the bath room door. PHARMACY TECHNICIAN INSTRUCTOR stepped back to allow patient to exit bathroom, at that time patient lost her balance, fell and appeared to hit right posterior flank on the toilet. It appears that patient had walked into the bathroom without using any assistive devices. Nurse assessed patient, who stated that she had right "hip/thigh" pain. Patient assisted off floor using lift sheet and Carina lift and assisted to bed. Patient given PRN pain medication. Pt has been alarmed with a pressure pad alarm, bed exit alarm, and the right side rail is up. Dr Kevon jennings, order obtained for hip and femur radiographs. Retail Shift Manager, Марина Allen, was notified. Nurse called patients DPOA, and left voice mail for return call. Awaiting results of radiographs.
[2021-01-23] MEDS ORDERED: FLUT100B IH (23:56)
[2021-01-23] MEDS ORDERED: POLY15DR27 OP (23:58)
[2021-01-24] MEDS ORDERED: MAG30ORA2 PO (00:02)
[2021-01-24] MEDS ORDERED: MAGN400O7 PO (00:02)
--- NOTE | 2021-01-24 00:52 | RAD ---
EXAM: 1. Frontal pelvis with two-view right hip. 2. Right femur 2 views. HISTORY: Fall, pain. COMPARISON: None. FINDINGS: There are limitations from underpenetration. No fractures are appreciated within the pelvis or either proximal femur. The joint spaces and alignment of both hips appear maintained. There is a spiral fracture of the right distal femoral metadiaphysis. There is one shaft width agapito lateral displacement of the distal fracture fragment. The knee is rotated, but alignment appears grossly maintained. A component of patellofemoral osteoart hritis is suspected. Subcutaneous edema is noted within the distal thigh and proximal leg. IMPRESSION: 1. Anterolaterally displaced spiral fracture of the distal femoral metadiaphysis. Electronically signed by: Lalo Sunshine MD (01/24/2021 12:50 AM) [facility]
--- NOTE | 2021-01-24 01:25 | NUR ---
Dr Lund advised via phone of radiology report. TO received to transfer patient to [facility] to telemetry bed with ortho consult. Patients xray showed: Anterolaterally displaced spiral fracture of the distal femoral metadiaphysis. Nurse called DPOA (no answer) and alternate DPOA (also no answer) to advise of situation. Voice mails left at each number requesting a return call. Patients mother Diane Grant was contacted at [phone], advised of femur fracture and she gave permission to transfer patient to [facility], , [place] for medical treatment supervisor garage notified.
[2021-01-24 02:28] VITALS: BP 78/50
--- NOTE | 2021-01-24 02:31 | NUR ---
Transition Record was faxed to follow-up provider with the following elements: Reason for admission, procedures, tests, principal diagnosis, pending studies, patient instructions, 07/04 contact information for unit, phone number to obtain pending test results, plan for follow-up care, physician follow-up, advanced directive information, and medication list with dose, duration and instructions. This information was included in the following documents: History and physical, lab results, study results, progress notes, social work planning form, DC instruction form, patient visit summary, and medication reconciliation form. Date & time record faxed: 01/24/21 [id number] [facility] by EMS Record faxed to: [facility] Record discussed with/ report given to: TAO Carbajal at [facility]
--- NOTE | 2021-01-24 03:23 | NUR ---
Patient picked up by EMS for transport to [facility].
--- NOTE | 2021-01-24 10:13 | PN ---
DATE: 01/23/2021 SUBJECTIVE: The patient was seen today, met with the staff, chart reviewed, and also covering for Dr. Freeman. The patient continues to present with behavior problems including attention seeking, manipulative behaviors and also feeling helpless. OBSERVATION: VITAL SIGNS: Temperature 97.6, pulse 55, respirations 20, O2 sat 97%. MEDICATIONS: The patient's current medications include Cymbalta 60 mg daily, Exelon 3 mg daily, amitriptyline 100 mg twice a day. She is not having any side effects to medications. LABORATORY DATA: The patient's lab reviewed. ASSESSMENT: Major depressive disorder, moderate to severe with psychotic features. PLAN: Continue with her treatment and also the patient's Elavil was decreased to 5 mg twice a day. Length of stay, [address]: Charlie TID: [id number]
--- NOTE | 2021-01-24 21:25 | DS ---
DATE OF DISCHARGE: 01/24/2021 FINAL DIAGNOSES: AXIS I: Major depressive disorder, moderate to severe, with psychotic features. AXIS II: None. AXIS III: Recent fall with resulting in spinal fracture of distal femur, diabetes type 2, diabetic polyneuropathy, coronary artery disease, obstructive sleep apnea, COPD, Parkinson's disease, congestive heart failure, cardiomyopathy, atrial fibrillation. REASON FOR ADMISSION: This is a 55-year-old female, resident at an independent living facility, was admitted to [facility] on 01/09/2021 for encephalopathy and she was found on the floor having profuse diarrhea for 2 days. In the emergency room, she was found to be in atrial fib with an ejection fraction of 10-15%. She was extensively investigated for encephalopathy including lumbar puncture, MRI of the brain and EEG. The patient was treated here mainly for depression and was followed up by Dr. Lund regularly. The patient's behavior included attention seeking, manipulative behaviors and also feeling hopeless. The patient was on Cymbalta 60 mg daily, Exelon 3 mg daily, amitriptyline was decreased to 50 mg twice a day from 100 mg twice a day. She was not having any side effects to medications. The patient apparently had to be transferred to [facility] via EMS for treatment for fracture, right femur. Otherwise, the patient was medically stable at the time of discharge. BRO DR: Charlie TID: [id number]
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
[2021-01-29] MEDS ORDERED: AMIODARONE HCL 200 MG TABLET. PO SCH (09:00)
== END 2021-01-24 03:24 | disposition short-term general hospital (02) | DRG 885 ==
LOC: GEROPSY 23:15
PROVIDERS: ADMIT Psychiatry & Neurology Psychiatry; ATTEND Psychiatry & Neurology Psychiatry
DX: F33.1 Major depressive disorder, recurrent, moderate (principal); E43 Unspecified severe protein-calorie malnutrition; I11.0 Hypertensive heart disease with heart failure; I42.9 Cardiomyopathy, unspecified; I50.42 Chronic combined systolic (congestive) and diastolic (congestive) heart failure; R45.851 Suicidal ideations; S72.491A Other fracture of lower end of right femur, initial encounter for closed fracture; Z68.42 Body mass index [BMI] 45.0-49.9, adult; E11.42 Type 2 diabetes mellitus with diabetic polyneuropathy; E83.42 Hypomagnesemia; E83.51 Hypocalcemia; E87.6 Hypokalemia; G20 Parkinson's disease; G47.33 Obstructive sleep apnea (adult) (pediatric); F63.9 Impulse disorder, unspecified; F41.9 Anxiety disorder, unspecified; F60.9 Personality disorder, unspecified; I25.10 Atherosclerotic heart disease of native coronary artery without angina pectoris; M19.90 Unspecified osteoarthritis, unspecified site; I48.0 Paroxysmal atrial fibrillation; J44.9 Chronic obstructive pulmonary disease, unspecified; Z66 Do not resuscitate; W01.0XXA Fall on same level from slipping, tripping and stumbling without subsequent striking against object, initial encounter; Y93.89 Activity, other specified; Y92.89 Other specified places as the place of occurrence of the external cause; Y99.8 Other external cause status; Z79.899 Other long term (current) drug therapy; Z87.891 Personal history of nicotine dependence; Z90.710 Acquired absence of both cervix and uterus
CPT/HCPCS: 36415; 73502; 73552; 80053; 80061; 81001; 82306; 82607; 82947; 83036; 83540; 83550; 83735; 84436; 84443; 84480; 85025; 85379; 86592; 87086; 93005; 97116; 97530; 97535